=== PATIENT | female | born 1990 | race Two or more races ===

== ENCOUNTER 2023-11-14 08:55 | Observation (INO) | payer OTHER | END 2023-11-14 09:49 | disposition home or self-care (01) | LOC: LDRP 08:55 | PROVIDERS: ADMIT Obstetrics & Gynecology; ATTEND Obstetrics & Gynecology | DX: O62.9 Abnormality of forces of labor, unspecified (principal); Z3A.39 39 weeks gestation of pregnancy | CPT/HCPCS: 59025; 81002; G0378 ==

== ENCOUNTER 2023-11-16 23:48 | Inpatient (IN) | payer OTHER ==
[~2023-11-16] VITALS: Ht 154.9 cm; Wt 66.2 kg
[2023-11-17] MEDS ORDERED: LIDOCAINE 2%HCL (LOCAL ANESTH.) INJ 20ML MDV IJ PRN (00:45)
[2023-11-17] MEDS ORDERED: BUTORPHANOL TARTRATE 2 MG/1 ML VIAL IV PRN ×2 (00:45)
[2023-11-17 01:17] LABS: Basophils # (auto) 0 10 ^3/uL (0-0.2); Basophils % (auto) 0.2 % (0.0-2.0); Eosinophils # (auto) 0 10 ^3/uL (0-0.8); Eosinophils % (auto) 0.3 % (0.0-7.0); Hematocrit 37.9 % (36.0-46.0); Hemoglobin 12.9 g/dL (12.2-16.2); Lymphocytes # (auto) 2.5 10 ^3/uL (0.4-5.4); Lymphocytes % (auto) 21.2 % (10.0-50.0); Mean Corpuscular Hemoglobin 32.3 pg (28.0-32.0); Mean Corpuscular Hgb Conc. 34.1 g/dL (32.0-36.0); Mean Corpuscular Volume 94.7 fL (80.0-100.0); Monocytes # (auto) 0.7 10 ^3/uL (0-1.3); Monocytes % (auto) 6.1 % (0.0-12.0); Neutrophils # (auto) 8.6 10 ^3/uL (1.6-8.6); Neutrophils % (auto) 72.2 % (37.0-80.0); Nucleated Red Blood Cells % 0.2 %; Red Cell Distribution Width 12.9 % (11.8-14.3); White Blood Cell 11.9 10^3/uL (4.4-10.8)
[2023-11-17 01:29] LABS: Albumin 3.7 g/dL (3.2-4.8); Alkaline Phosphatase 252 U/L (46-116); Anion Gap 8 (5-15); Aspartate Aminotransferase 14 U/L (13-40); Blood Urea Nitrogen 6 mg/dL (9-23); Calcium 8.7 mg/dL (8.7-10.4); Carbon Dioxide 21 mmol/L (20-30); Chloride 108 mmol/L (98-107); Glucose 85 mg/dL (74-106); Potassium 3.4 mmol/L (3.5-5.1); Sodium 137 mmol/L (136-145)
[2023-11-17 01:30] LABS: Bilirubin, Total 0.5 mg/dL (0.2-1.0); Total Protein 6.4 g/dL (5.7-8.2)
[2023-11-17 01:36] LABS: INR 0.93 (0.9-1.15); Partial Thromboplastin Time 32.9 SEC (24.5-34.5); Prothrombin Time 9.8 sec (9.3-11.8)
[2023-11-17 01:38] LABS: Alanine Aminotransferase 9 U/L (7-40)
[2023-11-17 01:47] LABS: Urine Bacteria NONE SEEN /hpf (None Seen); Urine Blood Negative /uL (Negative); Urine Clarity Clear (Clear); Urine Color Colorless (Yellow); Urine Protein, UAD Negative (Negative); Urine Specific Gravity 1.004 (1.001-1.035); Urine Urobilinogen Normal (Negative); Urine WBC <1 /hpf (0 - 5); Urine pH 6.5 (5.0-8.0)
[2023-11-17] MEDS: LACTATED RINGER'S 1,000 ML IV SCH (01:49)
[2023-11-17 01:56] LABS: Amphetamine Screen, Urine Neg (NEGATIVE); Barbiturate Scree,Urine Neg (NEGATIVE); Benzodiazephine Screen, Urine Neg (NEGATIVE); Cannabinoid Screen, Urine Neg (NEGATIVE); Cocaine Screen, Urine Neg (NEGATIVE); Opiate Scree,Urine Neg (NEGATIVE); Phencyclidine Screen, Urine Neg (NEGATIVE)
[2023-11-17] MEDS: miSOPROStol 50 MCG per PRE-CUT 1/2 TAB PO PRN (04:20)
[2023-11-17] MEDS: PHISODERM TOP SOLN 240ML BTL TOP PRN (04:21)
[2023-11-17] MEDS: WITCH HAZEL-GLYCERIN PAD TOP PRN (04:21)
[2023-11-17] MEDS: DERMOPLAST 60ML BOTTLE TOP PRN (04:21)
[2023-11-17] MEDS: fentaNYL CITRATE 100 MCG/2 ML VL IV ONE (18:14)
[2023-11-17] MEDS: ROPIVACAINE HCL 200 ML ONE (18:18)
[2023-11-17] MEDS: LACTATED RINGER'S 1,000 ML IV ONE (18:19)
[2023-11-17] MEDS: LIDOCAINE 1%-Mpf/Epinephrine 1:200,000 30ml VIAL IJ ONE (18:21)
[2023-11-17] MEDS: LIDOCAINE HCL 2 %PF INJ 10ML AMP IJ ONE (18:21)
[2023-11-17] MEDS ORDERED: TERBUTALINE SULFATE 1 MG/ML 1ML VIAL SC PRN (20:00)
[2023-11-17] MEDS ORDERED: miSOPROStol 100 mcg TAB SL PRN (20:45)
[2023-11-17] MEDS ORDERED: miSOPROStol 100 mcg TAB PR PRN (20:45)
[2023-11-17] MEDS ORDERED: CARBOPROST TROMETHAMINE 250 MCG/1ML VIAL IM PRN (20:45)
[2023-11-17] MEDS ORDERED: METHYLERGONOVINE MALEATE 0.2 MG/ML AMP IM PRN (20:45)
[2023-11-17] MEDS: LACT. RINGERS/OXYTOCIN 20UNITS 1,000 ML IV SCH (21:03)
[2023-11-18] MEDS: LACT. RINGERS/OXYTOCIN 20UNITS 500 ML IV ONE ×2 (01:29→04:52)
[2023-11-18] MEDS: ePHEDrine SULFATE 50 MG/ML AMP IV ONE (01:41)
[2023-11-18] MEDS: NALOXONE HCL 0.4 MG/ML VIAL IV ONE (01:42)
[2023-11-18] MEDS: MINERAL OIL TOPICAL 10ml TOP ONE (01:43)
[2023-11-18] MEDS: LIDOCAINE HCL 2 %PF INJ 10ML AMP IJ ONE (01:43)
[2023-11-18] MEDS: fentaNYL CITRATE 100 MCG/2 ML VL IV ONE (01:44)
[2023-11-18 07:00] VITALS: BP 107/62; PULSE 71; RESP 16; TEMP 98.3; O2SAT 98
[2023-11-18 07:06] LABS: RPR Non Reactive (Non Reactive)
[2023-11-18 11:00] VITALS: BP 101/65; PULSE 71; RESP 16; TEMP 98; O2SAT 97
[2023-11-18 15:00] VITALS: BP 124/68; PULSE 72; RESP 16; TEMP 97.9; O2SAT 97
[2023-11-18] MEDS: IBUPROFEN 600 MG TAB PO PRN (15:43)
[2023-11-18 18:12] LABS: Basophils # (auto) 0 10 ^3/uL (0-0.2); Basophils % (auto) 0.2 % (0.0-2.0); Eosinophils # (auto) 0 10 ^3/uL (0-0.8); Eosinophils % (auto) 0.3 % (0.0-7.0); Hematocrit 38.8 % (36.0-46.0); Hemoglobin 13.2 g/dL (12.2-16.2); Lymphocytes # (auto) 2.4 10 ^3/uL (0.4-5.4); Lymphocytes % (auto) 16.2 % (10.0-50.0); Mean Corpuscular Hemoglobin 32.3 pg (28.0-32.0); Mean Corpuscular Hgb Conc. 34.1 g/dL (32.0-36.0); Mean Corpuscular Volume 94.7 fL (80.0-100.0); Monocytes # (auto) 0.8 10 ^3/uL (0-1.3); Monocytes % (auto) 5.4 % (0.0-12.0); Neutrophils # (auto) 11.3 10 ^3/uL (1.6-8.6); Neutrophils % (auto) 77.9 % (37.0-80.0); Nucleated Red Blood Cells % 0.2 %; White Blood Cell 14.5 10^3/uL (4.4-10.8)
[2023-11-18 19:00] VITALS: BP 111/68; PULSE 68; RESP 18; TEMP 97.4; O2SAT 99
[2023-11-18] MEDS ORDERED: DOCUSATE SOD 100 MG CAP PO SCH (22:00)
[2023-11-18 23:00] VITALS: BP 115/61; PULSE 65; RESP 16; TEMP 97.6; O2SAT 97
[2023-11-19 02:40] VITALS: BP 110/64; PULSE 68; RESP 16; TEMP 97.8; O2SAT 98
[2023-11-19 07:00] VITALS: BP 102/65; PULSE 65; RESP 16; TEMP 97.5; O2SAT 97
[2023-11-19 07:24] VITALS: TEMP 97.5
[2023-11-19] MEDS: ACETAMINOPHEN 325 MG TAB PO PRN (07:24)
== END 2023-11-19 11:25 | disposition home or self-care (01) | DRG 807 ==
LOC: LDRP 23:48 → UNDOADMIN 23:48 → LDRP 11-17 00:41
PROVIDERS: ADMIT Obstetrics & Gynecology; ATTEND Obstetrics & Gynecology
PROC: 10E0XZZ Delivery of Products of Conception, External Approach (ICD-10-PCS; principal; 2023-11-18)
PROC: 3E0DXGC Introduction of Other Therapeutic Substance into Mouth and Pharynx, External Approach (ICD-10-PCS; 2023-11-18)
PROC: 3E0R3BZ Introduction of Anesthetic Agent into Spinal Canal, Percutaneous Approach (ICD-10-PCS; 2023-11-18)
PROC: 00HU33Z Insertion of Infusion Device into Spinal Canal, Percutaneous Approach (ICD-10-PCS; 2023-11-18)
DX: O48.0 Post-term pregnancy (principal); Z37.0 Single live birth; O70.0 First degree perineal laceration during delivery; Z3A.40 40 weeks gestation of pregnancy
CPT/HCPCS: 36415; 59025; 59200; 59409; 62282; 80053; 80307; 81001; 81002; 83036; 85025; 85610; 85730; 86592; 86850; 86900; 86901; 94760; 94762; 96360; 96361; 96365; 96366; G0378; J2590